=== PATIENT | female | born 1950 | race Caucasian/White ===

== ENCOUNTER 2016-08-28 11:24 | Outpatient (CLI) ==
--- NOTE | 2016-08-28 12:41 | DI ---
Examination: Two radiographic images of the right hip. Comparison: None available. Reason for study: Pain. FINDINGS: No acute fracture dislocation. The joint spaces well maintained. The femoral head artic ulates with the acetabula. Impression: No acute fracture or dislocation in the right hip.
--- NOTE | 2016-08-28 12:43 | DI ---
Examination: Three radiographic images of the lumbar spine. Comparison: None available. Reason for study: Pain. FINDINGS: No acute fracture. There is no apparent grade 1 retrolithesis of L5 on L4 seen on the la teral radiograph. This is not seen on the magnified lateral image. On the magnified lateral image, there is a grade 1 anterior listhesis of L5 on S1. There is maintenance of the lumbar lordotic cur ve. Operative changes are seen in the abdomen likely secondary to cholecystectomy. Impression: Likely grade 1 retrolithesis of L4 and L5 and grade 1 anterolisthesis of L5 on S1. If clinical conc mauro exists would recommend flexion/extension views. No acute fracture.
== END 2016-08-28 11:25 | disposition home or self-care (01) ==
LOC: RAD 11:24
PROVIDERS: ATTEND Internal Medicine
DX: M25.551 Pain in right hip (principal); M54.5 Low back pain

== ENCOUNTER 2018-07-13 07:48 | Outpatient (CLI) | payer OTHER ==
--- NOTE | 2018-07-13 13:18 | DEXA ---
EXAM: BONE DENSITOMETRY HISTORY: Post menopausal. FINDINGS: Exam of the lumbar spine demonstrated a total bone mineral density of 1.350 g/cm2. T score is 1.4. Age-matched Z score is 2.9. Exam of the hips revealed a total mean bone mineral density of 0.861 g/cm2. Mean hip T score: -1.2 Mean hip age-matched Z score: 0.0 FRAX WHO Fracture Risk Assessment. Ten year probability of fracture (%). Major Osteoporotic Fracture 11.4% Hip Fracture 1.9%. IMPRESSION: 1. Values presented indicate normal bone density of the spine. 2. Values presented indicate osteopenia of the hips.
--- NOTE | 2018-07-13 13:59 | DI ---
EXAM: Upper GI series HISTORY: Dysphagia COMPARISON: None FINDINGS: Upper GI series was performed using barium. Esophageal motility is normal. Esophageal [place] is normal. No filling defect is seen in the esophagus. Small hiatal hernia. Narrowing just above the hiatal hernia at the gastroesophageal junction region. A 13 mm dissolvable barium tablet was ad ministered and became lodged near the region of narrowing. No reflux identified on real time examinat ion. , excepting for the hiatal hernia, the stomach appears grossly normal without mass lesion or ulc er. The duodenum appears grossly normal without mass lesion or ulcer. IMPRESSION: Small hiatal hernia. Narrowing just above the hiatal hernia at the gastroesophageal junc tion region as described. Recommend correlation with endoscopy.
== END 2018-07-13 07:49 | disposition home or self-care (01) ==
LOC: RAD 07:48
PROVIDERS: ATTEND Internal Medicine
DX: R13.10 Dysphagia, unspecified (principal); Z78.0 Asymptomatic menopausal state

== ENCOUNTER 2018-08-16 08:54 | Day surgery (SDC) ==
[2018-08-16 09:55] VITALS: TEMP 97.9
[2018-08-16] MEDS ORDERED: SUBLIMAZE ONE (10:48)
[2018-08-16] MEDS ORDERED: DIPRIVAN 20 ML VIAL IVP ONE (10:48)
[2018-08-16 11:56] VITALS: BP 135/55
[2018-08-16 16:10] VITALS: BMI 27.6
--- NOTE | 2018-08-17 08:41 | OP ---
INDICATIONS FOR PROCEDURE: 67-year-old female presents for endoscopy. She has been having intermittent dysphagia to solid foods. The esophagram shows a narrowing in the distal esophagus. MEDICATIONS: SEE ANESTHESIA NOTES. PROCEDURE: ENDOSCOPY, ESOPHAGEAL BIOPSY, GASTRIC BIOPSY AND [place]IZ[place] DILATATION. REPORT: The risks, benefits, alternatives and limitations were discussed in detail with the patient. Informed consent was obtained. After adequate sedation was achieved, the video endoscope was introduced in the posterior pharynx and esophagus. I easily advanced this down to the second portion of the duodenum. I then slowly withdrew. The duodenal mucosa appeared unremarkable as did the duodenal bulb. The antrum and body were relatively unremarkable. In the proximal body there was a diminutive 4 to 5 mm semi sessile polyp that appeared benign. I biopsied it for histologic review. Retroflex view of the cardia and fundus revealed no abnormalities. The scope was anteflexed and withdrawn back through the esophagus. There was a small 1 to 2 cm sliding hiatal hernia. At the GE junction there was a circumferential stricture causing mild to moderate luminal narrowing. The esophagus itself appeared unremarkable. I biopsied the GE junction where the stricture was multiple times for histologic review. I then advanced the scope back down the gastric lumen. I placed a guidewire. I withdrew the scope. Over the guidewire I easily advanced a 54 [place] dilator. The patient tolerated the procedure well with stable vital signs and pulse oximetry throughout. IMPRESSION: 1. DISTAL ESOPHAGEAL STRICTURE DILATED TO 54 FILIPINO. 2. 1 TO 2 CM SLIDING HIATAL HERNIA. 3. SMALL BENIGN APPEARING GASTRIC POLYP BIOPSIED. RECOMMENDATIONS: 1. Strict reflux precautions. 2. I advised her to cut and chew her food well. 3. Continue her current medications. 4. She is having breakthrough reflux in the evenings. I advised avoiding eating and drinking late at night. When she does have some breakthrough reflux she can take an [id number] H2 arash on an as needed basis as directed. 5. Await pathology results. If everything is benign, no further intervention. If there is any evidence of Waite's then I suggest a repeat endoscopy exam in three years. 6. Will see her back in the office as needed. CC: DR. ALBANIA HOUSER
== END 2018-08-16 11:55 | disposition home or self-care (01) ==
LOC: SURG 08:54
PROVIDERS: ATTEND Internal Medicine Gastroenterology
DX: R13.10 Dysphagia, unspecified (principal); K44.9 Diaphragmatic hernia without obstruction or gangrene; K31.7 Polyp of stomach and duodenum; K22.2 Esophageal obstruction
CPT/HCPCS: 36415; 80053; 82271; 82272; 85025; 85610; 85730; 86850; 86900; 93005; 93010; 96361; 96374; 99285

== ENCOUNTER 2018-08-16 16:00 | Emergency (ER) ==
[2018-08-16 16:10] VITALS: BP 153/80; TEMP 97.9; BMI 27.6
--- NOTE | 2018-08-16 16:36 | ED.PDOC ---
General ED Provider: Dr. GUDELIA KASPER Chief Complaint: GI Bleed Stated Complaint: Vomiting Bright Blood. States she underwent UGI this AM at [facility] by Dr Borrego. Underwent Stretching of esophagus and polyp removal. No reported complication. States discharged to home in stable condition. After arriving home prepared her chicken noodle soup which she consumed 1/2 can. Tolerated well. Approximately 30 min before arrival she became nauseated she started feeling very nauseated and had a black stool, states that's 15 minutes later she vomited dark red blood. brought her to ER. states Time Seen by Physician: 16:05 Mode of Arrival: Walk-In Information Source: Patient Primary Care Provider: CAITLYN LOVELACE Nursing and Triage Documentation Reviewed and Agree: Yes Does patient meet sepsis criteria?: No If yes, has appropriate treatment been initiated?: No System Inflammatory Response Syndrome: Not Applicable Sepsis Protocol: For patient's 13 years and over: Temp is 96.8 and below OR 101 and greater Pulse >90 BPM Resp >20/minute Acutely Altered Mental Status Are patient's symptoms suggestive of a new infection, such as: -Pneumonia -Skin, Soft Tissue -Endocarditis -UTI -Bone, Joint Infection -Implantable Device -Acute Abdominal Infection -Wound Infection -Meningitis -Blood Stream Catheter Infection -Unknown GI Complaint Exam - Rectal Complaint/Exam Patient Complains of: Reports: Rectal bleeding Onset/Duration: 45 min before arrival Symptoms Are: Resolved Episodes Lasting: Minutes Initial Severity: Moderate Current Severity: None Location: Reports: Rectal Associated Signs and Symptoms: Reports: Black tarry stool (Liquid stool) Related History: Reports: Similar episode Rectal Exam: Present: Normal findings (secretions on glove suspicious for blood) Differential Diagnoses: Other (UGI Bleed, Hx of Black liquid stool(sl darker than emesis.) Review of Systems - Review Of Systems Constitutional: Reports: No symptoms Eyes: Reports: No symptoms Ears, Nose, Mouth, Throat: Reports: No symptoms Respiratory: Reports: No symptoms Cardiac: Reports: No symptoms GI: Reports: No symptoms, Vomiting (maria elena blood), Other (Recent Esophageal stretching and GI polyp removal) : Reports: No symptoms Musculoskeletal: Reports: No symptoms Skin: Reports: No symptoms Neurological: Reports: No symptoms Endocrine: Reports: No symptoms Hematologic/Lymphatic: Reports: No symptoms All Other Systems: Reviewed and Negative Past Medical History - Past Medical History Previously Healthy: Yes Endocrine: Reports: None, Hypothyroid Cardiovascular: Reports: None Respiratory: Reports: None Hematological: Reports: None Gastrointestinal: Reports: Other (polyp, esophageal stricture/EGD today with polyp removal and stretching ) Genitourinary: Reports: None Neuro/Psych: Reports: None Musculoskeletal: Reports: None Cancer: Reports: None Last Menstrual Period: n/a - Surgical History General Surgical History: Reports: None - Family History Family History: Reports: None - Social History Smoking Status: Never smoker Hx Substance Use: No Alcohol Screening: None Physical Exam - Physical Exam Appearance: Ill-appearing, No pain distress, Well-nourished Ill-appearing: Mild Pain Distress: None Eyes: LEONID, EOMI, Conjunctiva clear ENT: Ears normal, Nose normal, Oropharynx normal Respiratory: Airway patent, Breath sounds clear, Breath sounds equal, Respirations nonlabored Cardiovascular: RRR, Pulses normal, No rub, No murmur GI/: Soft, Nontender, No masses, Bowel sounds normal, No Organomegaly Musculoskeletal: Normal strength, ROM intact, No edema, No calf tenderness Skin: Warm, Dry, Normal color Neurological: Sensation intact, Motor intact, Reflexes intact, Cranial nerves intact, Alert, Oriented Psychiatric: Affect appropriate, Mood appropriate Re-Evaluation - Re-Evaluation Time of Re-Evaluation: 17:15 Status: Unchanged Vital Signs Stable: Yes Appearance: NAD Lungs: Clear Skin: Warm and Dry Neuro: Alert and Oriented X3 CV: RRR Physician Notification - Case Discussed Physician Notified: Dr Mendoza Time of Notification: 17:00 (Transfer to [facility] to [facility]) Critical Care Note - Critical Care Note Total Time (mins): 90 Course - Course Hematology/Chemistry: 08/16/18 16:40 08/16/18 16:40 Orders, Labs, Meds: Lab Review 08/16/18 08/16/18 08/16/18 16:30 16:40 16:40 WBC 13.50 H RBC 3.42 L Hgb 11.1 L Hct 32.2 L MCV 94.2 MCH 32.5 H MCHC 34.5 RDW Coeff of Poli 12.2 Plt Count 232 Immature Gran % (Auto) 0.4 Neut % (Auto) 84.1 Lymph % (Auto) 8.8 L [place] % (Auto) 5.3 Eos % (Auto) 1.1 Baso % (Auto) 0.3 Immature Gran # (Auto) 0.1 Neut # (Auto) 11.4 H Lymph # (Auto) 1.2 [place] # (Auto) 0.7 Eos # (Auto) 0.2 Baso # (Auto) 0.0 PT INR APTT Sodium 135.3 Potassium 3.99 Chloride 97.3 L Carbon Dioxide 31.0 H Anion Gap 10.99 BUN 21.0 H Creatinine 0.84 Estimated GFR (MDRD) 68.00 BUN/Creatinine Ratio 25.00 Glucose 124.4 H Calcium 8.84 Total Bilirubin 0.76 AST 25.3 ALT 19.4 Alkaline Phosphatase 70.1 Total Protein 6.87 Albumin 3.87 Globulin 3.00 Albumin/Globulin Ratio 1.29 Gastric Fluid pH Gastric Occult Blood Stl Occult Blood (IFOB) Stool Occult Blood #2 Stool Occult Blood #3 Blood Type O POSITIVE Antibody Screen Negative 08/16/18 08/16/18 08/16/18 16:40 16:45 16:50 WBC RBC Hgb Hct MCV MCH MCHC RDW Coeff of Poli Plt Count Immature Gran % (Auto) Neut % (Auto) Lymph % (Auto) [place] % (Auto) Eos % (Auto) Baso % (Auto) Immature Gran # (Auto) Neut # (Auto) Lymph # (Auto) [place] # (Auto) Eos # (Auto) Baso # (Auto) PT 9.5 INR 0.95 APTT 22.5 L Sodium Potassium Chloride Carbon Dioxide Anion Gap BUN Creatinine Estimated GFR (MDRD) BUN/Creatinine Ratio Glucose Calcium Total Bilirubin AST ALT Alkaline Phosphatase Total Protein Albumin Globulin Albumin/Globulin Ratio Gastric Fluid pH Gastric Occult Blood Positive Stl Occult Blood (IFOB) Positive Stool Occult Blood #2 No specimen received Stool Occult Blood #3 No specimen received Blood Type Antibody Screen Orders Category Date Time Status EKG-(ED ONLY) Stat CARDIO 08/16/18 17:54 Completed IV [ED IV/MEDIPORT/POWERPORT] .ONCE EMERGENCY 08/16/18 17:36 Active CBC W/ AUTO DIFF Stat LAB 08/16/18 16:40 Completed CMP [COMPREHENSIVE METABOLIC PANEL] Stat LAB 08/16/18 16:40 Completed GASTRIC OCCULT BLOOD AND PH Stat LAB 08/16/18 16:50 Completed OCCULT BLOOD, STOOL Stat LAB 08/16/18 16:45 Completed PT WITH INR Stat LAB 08/16/18 16:40 Completed PTT [PARTIAL THROMBOPLASTIN TIME] Stat LAB 08/16/18 16:40 Completed TYPE AND SCREEN Stat LAB 08/16/18 16:30 Completed 0.9 % Sodium Chloride [Saline Flush] MEDS 08/16/18 17:35 Discontinued 1 syr IVF PRN PRN Ondansetron HCl/Pf [Zofran 4 mg/2 ml] MEDS 08/16/18 16:47 Discontinued 4 mg IVP ONCE STA Sodium Chloride 0.9% [Sodium Chloride] 1,000 ml MEDS 08/16/18 16:55 Discontinued IV BOLUS Sodium Chloride 0.9% [Sodium Chloride] 1,000 ml MEDS 08/16/18 16:55 Discontinued IV ONCE Medications Discontinued Medications Generic Name Dose Route Start Last Admin Trade Name Freq PRN Reason Stop Dose Admin Sodium Chloride 1,000 mls @ 1,000 mls/hr 08/16/18 16:55 Sodium Chloride IV 08/16/18 17:54 BOLUS STA Sodium Chloride 1,000 mls @ 125 mls/hr 08/16/18 16:55 08/16/18 17:04 Sodium Chloride IV 08/17/18 00:54 125 mls/hr ONCE ONE Administration Ondansetron HCl 4 mg 08/16/18 16:47 08/16/18 17:02 Zofran 4 Mg/2 Ml IVP 08/16/18 16:48 4 mg ONCE STA Administration Sodium Chloride 1 syr 08/16/18 17:35 Saline Flush IVF PRN PRN To flush IV Vital Signs: Temp Pulse Resp BP Pulse Ox 08/16/18 16:05 97.9 F 70 20 153/80 H 99 Departure - Departure Time of Disposition: 17:30 Disposition: TSF SHORT-TRM HOSP Discharge Problem: UGI bleed, Gastrointestinal hemorrhage, Anemia Instructions: Gastrointestinal Bleeding (ED) Condition: Fair Pt referred to PMD for follow-up: Yes (See after discharge from hospital) IPMP verified?: No Allergies/Adverse Reactions: Allergies No Known Allergies Allergy (Verified 08/16/18 16:09) Home Medications: Ambulatory Orders Levothyroxine Sodium [Synthroid] 125 mcg PO DAILY 05/09/13 Simvastatin 40 mg PO DAILY 05/09/13 Transfer Form Completed: Yes Disposition Discussed With: Patient, Family Additional Information: 1640 Spoke with Advised of patient history of rectal bleeding Discussed case Request stool for guiac anticipate transfer Await lab results [address] Mendoza Advised of additional bloody emesis, lab results Advised to transfer to [facility] Hospitalist Stated he contacted hositalist service to make them aware of case Passed info on to Marilee RN in our dept Made patient aware 173 Advised by [facility] ICU room not available for 30-45 min and hospitalist wishes patient to be transferred until room available Transfer center Center called to make sure Dr Mendoza aware to delay in transfer and were advised Hospital dealing with 2 other GI bleeds(surgery and OR ) Emphasized our urgency in proceeding with transferring patient due to her status Will call us back when be ready 1750; [facility] called back and states room is ready. call report and send patient. Ambulance contacted for transfer
[2018-08-16] MEDS ORDERED: ZOFRAN 4 MG/2 ML IVP STA (16:47)
[2018-08-16] MEDS ORDERED: SODIUM CHLORIDE 1,000 ML IV ONE (16:55)
[2018-08-16] MEDS ORDERED: SODIUM CHLORIDE 1,000 ML IV STA (16:55)
== END 2018-08-16 18:13 | disposition short-term general hospital (02) ==
LOC: ED 16:00
DX: K91.840 Postprocedural hemorrhage of a digestive system organ or structure following a digestive system procedure (principal); D64.9 Anemia, unspecified; E03.9 Hypothyroidism, unspecified; Z79.899 Other long term (current) drug therapy; K92.0 Hematemesis
CPT/HCPCS: 36415; 80053; 82271; 82272; 85025; 85610; 85730; 86850; 86900; 93005; 93010; 96361; 96374; 99285

== ENCOUNTER 2018-10-13 16:17 | Emergency (ER) | payer OTHER ==
[2018-10-13 16:19] VITALS: BP 148/89; TEMP 98.8; BMI 27.7
--- NOTE | 2018-10-13 16:28 | ED.PDOC ---
General ED Provider: Dr. RAAD PATTON Chief Complaint: Fall Stated Complaint: chin laceration after a fall denied neck pain. Time Seen by Physician: 17:30 (fall NO L.O.C , NO HEADACHE ) Mode of Arrival: Walk-In Information Source: Patient Exam Limitations: No limitations Primary Care Provider: CAITLYN LOVELACE Referred to ED by: Other (NO TINGLING, NO MUBNESS NO L.O.C.) Nursing and Triage Documentation Reviewed and Agree: Yes Does patient meet sepsis criteria?: No If yes, has appropriate treatment been initiated?: No System Inflammatory Response Syndrome: Not Applicable Sepsis Protocol: For patient's 13 years and over: Temp is 96.8 and below OR 101 and greater Pulse >90 BPM Resp >20/minute Acutely Altered Mental Status Are patient's symptoms suggestive of a new infection, such as: -Pneumonia -Skin, Soft Tissue -Endocarditis -UTI -Bone, Joint Infection -Implantable Device -Acute Abdominal Infection -Wound Infection -Meningitis -Blood Stream Catheter Infection -Unknown Trauma/Injury Complaint Exam - Head Injury Complaint/Exam Location of Pain: Reports: Other (CHIN) Mechanism of Injury: Reports: Trauma (FALL NE HEADACHE NO NECK PAIN) Onset/Duration: 1 HR AGO Symptoms Are: Still present Initial Severity: Mild Current Severity: Mild Aggravating: Reports: None Alleviating: Reports: None Associated Signs and Symptoms: Denies: Confusion, Memory loss, Seizure, Epistaxis, Dental malocclusion, Neck pain, Nausea, Vomiting Loss of Consciousness: None SDH Risk Factors: Present: None Related Surgical History: Reports: None Immobilization Removed Post Exam: No Head Injury Findings: Present: Normal findings Glascow Coma Scale (see protocol): 15 Focal Weakness: Present: None Focal Sensory Loss: Present: None Gait: Normal Finger to Nose: Normal Nexus Low Risk Criteria: No post-midline CS tender, No evidence of intoxicat., No Altered LOC, No focal neuro deficit, No distracting injuries Differential Diagnoses: Other (LACERATION) Review of Systems - Review Of Systems Constitutional: Reports: No symptoms Eyes: Reports: No symptoms Ears, Nose, Mouth, Throat: Reports: No symptoms Respiratory: Reports: No symptoms Cardiac: Reports: No symptoms GI: Reports: No symptoms : Reports: No symptoms Musculoskeletal: Reports: No symptoms Skin: Reports: No symptoms Neurological: Reports: No symptoms (NO NUMBNES, NO WEAKNESS ) Endocrine: Reports: No symptoms Hematologic/Lymphatic: Reports: No symptoms All Other Systems: Reviewed and Negative Past Medical History - Past Medical History Previously Healthy: Yes Endocrine: Reports: None, Hypothyroid Cardiovascular: Reports: None Respiratory: Reports: None Hematological: Reports: None Gastrointestinal: Reports: Other (polyp, esophageal stricture/EGD today with polyp removal and stretching ) Genitourinary: Reports: None Neuro/Psych: Reports: None Musculoskeletal: Reports: None Cancer: Reports: None Last Menstrual Period: N/A - Surgical History General Surgical History: Reports: None - Family History Family History: Reports: None - Social History Smoking Status: Never smoker Hx Substance Use: No Alcohol Screening: None - Immunizations Tetanus Shot up to Date: No Physical Exam - Physical Exam Appearance: Well-appearing, No pain distress, Well-nourished Eyes: LEONID, EOMI, Conjunctiva clear ENT: Ears normal, Nose normal, Oropharynx normal Respiratory: Airway patent, Breath sounds clear, Breath sounds equal, Respirations nonlabored Cardiovascular: RRR, Pulses normal, No rub, No murmur GI/: Soft, Nontender, No masses, Bowel sounds normal, No Organomegaly Musculoskeletal: Normal strength, ROM intact, No edema, No calf tenderness Skin: Warm, Dry (3MM LAC CHIN ) Neurological: Sensation intact, Motor intact, Reflexes intact, Cranial nerves intact, Alert, Oriented Psychiatric: Affect appropriate, Mood appropriate Critical Care Note - Critical Care Note Total Time (mins): 0 Course - Course Vital Signs: Temp Pulse Resp BP Pulse Ox 10/13/18 16:17 98.8 F 68 18 148/89 H 98 Departure - Departure Time of Disposition: 16:28 (WOUND STERRI STRIPPED) Disposition: HOME SELF-CARE Discharge Problem: Laceration of chin Qualifiers: Encounter type: initial encounter Qualified Code(s): S01.81XA - Laceration without foreign body of other part of head, initial encounter Instructions: Laceration (ED) Condition: Good Pt referred to PMD for follow-up: Yes IPMP verified?: No Additional Instructions: Please call your Family Physician as soon as possible to schedule a follow-up appointment. Allergies/Adverse Reactions: Allergies No Known Allergies Allergy (Verified 10/13/18 16:19) Home Medications: Ambulatory Orders Levothyroxine Sodium [Synthroid] 125 mcg PO DAILY 05/09/13 Simvastatin 40 mg PO DAILY 05/09/13
[2018-10-13] MEDS ORDERED: TENIVAC IM ONE (16:37)
== END 2018-10-13 17:20 | disposition home or self-care (01) ==
LOC: ED 16:17
DX: S01.81XA Laceration without foreign body of other part of head, initial encounter (principal); W19.XXXA Unspecified fall, initial encounter
CPT/HCPCS: 90714; 99283

== ENCOUNTER 2023-03-29 12:12 | Observation (INO) ==
[2023-03-29] MEDS ORDERED: SUBLIMAZE IM ONE (12:13)
[2023-03-29] MEDS ORDERED: NORFLEX IM ONE (12:14)
[2023-03-29] MEDS ORDERED: ZOFRAN TAB PO ONE (12:33)
--- NOTE | 2023-03-29 13:11 | CT ---
EXAM: CT RIGHT HIP WITHOUT CONTRAST HISTORY: Acute pain COMPARISON: No recent imaging available for comparison. FINDINGS: Axial CT images of the right hip without contrast and multiplanar reformatted images. No discrete fracture line. No dislocation. Mild degenerative changes to the right hip. Small right hip joint effusion versus physiologic fluid. Mild degenerative changes to the right sacroiliac joint and pubic symphysis. The right hip soft tissues are grossly unremarkable by noncontrast CT examination. Large amount of stool in the rectum. IMPRESSION: No acute fracture. If symptoms persist, or if there is clinical concern for occult injury, recommend follow-up MRI exami nation. Small right hip joint effusion versus physiologic fluid. Degenerative changes. Please see above description and additional findings. All CT scans are performed using dose optimization techniques as appropriate to the performed exam an d include at least one of the following: Automated exposure control, adjustment of the mA and/or kV according t o size, and the use of iterative reconstruction technique.
--- NOTE | 2023-03-29 13:31 | ED.PDOC ---
General ED Provider: Dr. ISAAC KELLY MD Chief Complaint: Hip Pain/Injury Stated Complaint: This patient was feeling fine until trying to get in a car today, and developed sudden and severe pain in the right hip/lateral R thigh. She has never had this pain before, and had no mechanism of injury. She has not taken anything for it. movement of the lower leg, causes intense pain, and she gets relief with the knees flexed. She has no abdominal pain, and no pain running down the back of the leg, and no loss of sensation in the R leg. She can move and feel all the toes in the right foot. Time Seen by Provider: 03/29/23 12:13 Mode of Arrival: Wheelchair Information Source: Patient Exam Limitations: Clinical condition Primary Care Provider: CAITLYN LOVELACE MD Nursing and Triage Documentation Reviewed and Agree: Yes Musculoskeletal Complaint Exam Lower Extremity Complaint/Exam Location of Pain: Reports Right, Thigh and Hip Mechanism of Injury: Reports No known trauma Symptoms Are: Still present Onset of Pain: Reports Immediate Initial Severity: Severe Current Severity: Severe Location: Reports Discrete Character: Reports Sharp Alleviating: Reports Position Aggravating: Reports Movement Able to Bear Weight: No Associated Signs and Symptoms: Denies Swelling, Redness, Bruising, Fever, Weakness, Numbness or Tingling Related History: Denies Similar episode or Occupational injury DVT Risk Factors: Reports None Septic Arthritis Risk Factors: Reports None Related Surgical History: Reports None Lower Extremity Findings: Present Tenderness and Limited range of motion; Absent Swelling, Ecchymosis, Abnormal contour, Rotation, Ligamentous instability, Laceration, Erythema, Warmth, Blisters, Other joint pain or Foreign body NV Bundle Intact Distal to Injury: Yes Peter's Sign Present: No Differential Diagnoses: Strain and Sprain Review of Systems Review Of Systems Constitutional: Reports No symptoms Eyes: Reports No symptoms Ears, Nose, Mouth, Throat: Reports No symptoms Respiratory: Reports No symptoms Cardiac: Reports No symptoms GI: Reports No symptoms : Reports No symptoms Musculoskeletal: Reports Joint pain, Muscle pain and Muscle stiffness Skin: Reports No symptoms Neurological: Reports No symptoms Endocrine: Reports No symptoms Hematologic/Lymphatic: Reports No symptoms All Other Systems: Reviewed and Negative COUNTS INCLUDE 234 BEDS AT THE [facility] Medical History Atopic dermatitis L20.9 - Atopic dermatitis, unspecified (ICD-10) COVID-19 U07.1 - COVID-19 (ICD-10) Hx of herpes zoster virus Z86.19 - Personal history of other infectious and parasitic diseases (ICD- 10) Sciatica, right side M54.31 - Sciatica, right side (ICD-10) Family History FATHER CKD (chronic kidney disease) Mother Cardiac pacemaker Social History (Updated 03/29/23 @ 18:22 by ARLENE KIM RN) Smoking and tobacco status: Never smoker Passive smoking exposure: No Second hand smoke exposure: No Alcohol intake: current Alcohol intake frequency: holidays/special occasions only Substance use type: does not use Lorena/confucianist: BAHAI Special lorena needs: No Agree to transfusion: Yes Adopted: No Caregiver/support person: No Foster care: No Household members: spouse Housing: house Marital status: M Number of children: 1 service: No long term: No Current occupational status: employed Current occupation: [employer] History of recent travel: No Current gender identity: female Seatbelt use: always Helmet use: No Drives intoxicated or rides with intoxicated route sales driver: No Water heater temperature set < 120 degrees: Yes Working smoke detector in home: Yes Fire extinguisher in home: Yes Carbon monoxide detector in home: Yes Firearms in home: Yes Surgical History History of hysterectomy Z90.710 - Acquired absence of both cervix and uterus (ICD-10) History of removal of cyst Z98.890 - Other specified postprocedural states (ICD-10) History of thyroidectomy, total E89.0 - Postprocedural hypothyroidism (ICD-10) S/P cholecystectomy Z90.49 - Acquired absence of other specified parts of digestive tract (ICD- 10) Physical Exam Physical Exam Appearance: Reports Other (Pt is in obvious pain, crying out, not comfortable. No noticeable abnormailty seen in R hip of thigh.) Ill-appearing: Moderate Pain Distress: Severe Eyes: Reports LEONID and Conjunctiva clear ENT: Reports Ears normal, Nose normal and Oropharynx normal Neck: Nonsupple Respiratory: Reports Airway patent, Breath sounds clear and Breath sounds equal Cardiovascular: Reports RRR and No murmur GI/: Reports Soft, Nontender, No masses and Bowel sounds normal Musculoskeletal: Reports Normal strength and Other (ROM severely limited in the R lower ext - ANY movement of the R lower ext prduced severe exacerbation of the pain in the hip and lateral thigh on the right side, no deformity seen.) Skin: Reports Warm, Dry and Normal color Neurological: Reports Sensation intact, Motor intact, Reflexes intact, Cranial nerves intact, Alert and Oriented Psychiatric: Reports Affect appropriate Critical Care Note Critical Care Note Total Critical Care Time (mins): 0 Course Course 03/29/23 16:51 03/29/23 16:51 Orders, Labs, Meds: Lab Review 03/29/23 16:51 WBC 8.67 RBC 4.04 L Hgb 12.8 Hct 38.0 MCV 94.1 MCH 31.7 H MCHC 33.7 RDW Coeff of Poli 12.9 Plt Count 245 Immature Gran % (Auto) 0.3 Neut % (Auto) 80.8 H Lymph % (Auto) 11.5 [place] % (Auto) 5.3 Eos % (Auto) 1.8 Baso % (Auto) 0.3 Neut # (Auto) 7.0 H Lymph # (Auto) 1.0 [place] # (Auto) 0.5 Eos # (Auto) 0.2 Baso # (Auto) 0.0 Immature Gran # (Auto) 0.0 Sodium 132.7 L Potassium 3.62 Chloride 96.5 L Carbon Dioxide 27.6 Anion Gap 12.22 BUN 9.0 Creatinine 0.82 Estimated GFR (MDRD) 69.00 BUN/Creatinine Ratio 10.97 Glucose 99.3 Calcium 8.92 Total Bilirubin 0.73 AST 32.4 ALT 27.1 Alkaline Phosphatase 85.2 Total Protein 7.52 Albumin 4.10 Globulin 3.42 Albumin/Globulin Ratio 1.19 Orders Category Date Time Status ADMIT OBSERVATION [PLACE PATIENT OBSERVATION] .TO ADMISSION 03/29/23 16:28 Active MEDSURG (NON-MONITORED BED) ACTIVITY .Early Mobilization for VTE Prevention CARE 03/29/23 16:36 Active INTAKE & OUTPUT Q8HR CARE 03/29/23 16:36 Active VITAL SIGNS Q8HR CARE 03/29/23 16:36 Completed CARDIAC DIET DIETARY 03/29/23 Dinner Ordered CBC W/ AUTO DIFF DAILY@0600 LAB 03/30/23 06:00 Ordered CBC W/ AUTO DIFF DAILY@0600 LAB 03/31/23 06:00 Ordered CBC W/ AUTO DIFF Routine LAB 03/29/23 16:51 Completed CMP [COMPREHENSIVE METABOLIC PANEL] Routine LAB 03/29/23 16:51 Completed COMPREHENSIVE METABOLIC PANEL DAILY@0600 LAB 03/30/23 06:00 Ordered COMPREHENSIVE METABOLIC PANEL DAILY@0600 LAB 03/31/23 06:00 Ordered COVID [SARS COV-2 RNA RAPID MAUREEN] Stat LAB 03/29/23 Completed Acetaminophen [Tylenol] Meds 03/29/23 16:36 Active 650 mg PO Q4H PRN Dexamethasone Sod Phosphate [Decadron] Meds 03/29/23 15:19 Discontinued 10 mg IM ONCE ONE Fentanyl Citrate/Pf [Sublimaze] Meds 03/29/23 12:13 Discontinued 100 mcg IM ONCE ONE Hydrocodone Bit/Acetaminophen [[place] 5-325] Meds 03/29/23 16:36 Active 1 tab PO Q6H PRN Ketorolac Tromethamine [Toradol] Meds 03/29/23 15:12 Discontinued 60 mg IM ONCE ONE Ondansetron HCl [Zofran Tab] Meds 03/29/23 12:33 Discontinued 8 mg PO ONCE ONE Orphenadrine Citrate [Norflex] Meds 03/29/23 12:14 Discontinued 60 mg IM ONCE ONE Prednisone Meds 03/30/23 07:30 Active 10 mg PO DAILYWM2 Tizanidine HCl [Zanaflex] Meds 03/29/23 16:36 Active 4 mg PO Q6H PRN CT HIP RIGHT WITHOUT CONTRAST Stat RADS 03/29/23 12:14 Completed Medications Generic Name Dose Route Start Last Admin Trade Name Trisha PRN Reason Stop Dose Admin Acetaminophen 650 mg 03/29/23 16:36 Acetaminophen 325 Mg Tablet PO Q4H PRN Mild Pain Hydrocodone Bitart/Acetaminophen 1 tab 03/29/23 16:36 03/29/23 20:55 Hydrocodone Bit/Acetaminophen 5/325 Mg Tablet PO 1 tab Q6H PRN Administration Pain Bisoprolol Fumarate/HCTZ 1 tab 03/30/23 09:00 Bisoprolol Fumarate/Hctz 5/6.25 Mg Tab PO DAILY DILSHAD Levothyroxine Sodium 88 mcg 03/30/23 06:30 Levothyroxine Sodium 88 Mcg Tablet PO DAILY@0630 DILSHAD Omeprazole 20 mg 03/30/23 09:00 Omeprazole 20 Mg Capsule. PO DAILY DILSHAD Pantoprazole Sodium 40 mg 03/29/23 21:00 03/29/23 20:55 Pantoprazole Sodium 40 Mg Tablet. PO 40 mg BID DILSHAD Administration Prednisone 10 mg 03/30/23 07:30 Prednisone 10 Mg Tablet PO DAILYWM2 DILSHAD Simvastatin 40 mg 03/30/23 09:00 Simvastatin 40 Mg Tablet PO DAILY DILSHAD Tizanidine HCl 4 mg 03/29/23 16:36 Tizanidine Hcl 4 Mg Tablet PO Q6H PRN Spasms Discontinued Medications Generic Name Dose Route Start Last Admin Trade Name Freq PRN Reason Stop Dose Admin Dexamethasone Sodium Phosphate 10 mg 03/29/23 15:19 03/29/23 15:28 Dexamethasone Sod Phos 10 Mg/Ml Inj IM 03/29/23 15:20 10 mg ONCE ONE Administration Fentanyl Citrate 100 mcg 03/29/23 12:13 03/29/23 12:30 Fentanyl 50 Mcg/Ml Sdv IM 03/29/23 12:14 100 mcg ONCE ONE Administration Ketorolac Tromethamine 60 mg 03/29/23 15:12 03/29/23 15:20 Ketorolac Tromethamine 60 Mg/2 Ml Vial IM 03/29/23 15:13 Not Given ONCE ONE Ondansetron HCl 8 mg 03/29/23 12:33 03/29/23 12:36 Ondansetron Hcl 4 Mg Tablet PO 03/29/23 12:34 8 mg ONCE ONE Administration Orphenadrine Citrate 60 mg 03/29/23 12:14 03/29/23 12:29 Orphenadrine Citrate 60 Mg/2 Ml Vial IM 03/29/23 12:15 60 mg ONCE ONE Administration Vital Signs: Temp Pulse Resp BP Pulse Ox 03/29/23 12:13 98.0 F 68 20 173/91 H 100 Discharge Plan Discharge Patient Disposition: PLACED OBSERVATION Discharge Problem: Hip pain, Bursitis of hip, right Did you review [place] OVEN BUILDER for ALL controlled substances?: Yes ED Provider: ISAAC KELLY Condition: Fair Physician Progress Note: []CT of the R hip showed no fracture or dislocation, but a small amount of joint effusion in the R hip. This does not appear to be septic, but is abnormal. Will need orthopedist referral. I will place on NSAIDS for home use, with Norc 7.5 # 10 no refills, as this was SEVERELY painful to the patient. I spoke to Dr Carlos, who will be happy to see the patient in office for follow up, and he thought, since she was afebrile, the joint was not hot, that an injection of Dexamethasone 10 mg IM in that hip would likely be helpful. We will do that. The patient and her do not think that she can tolerate going home tonight, and want admitted for pain control. I have called Jefry Dunne, and she will admit her for 23 obs for pain control.
[2023-03-29] MEDS ORDERED: TORADOL IM ONE (15:12)
[2023-03-29] MEDS ORDERED: DECADRON IM ONE (15:19)
[2023-03-29] MEDS ORDERED: ZANAFLEX PO PRN (16:36)
[2023-03-29] MEDS ORDERED: TYLENOL PO PRN (16:36)
[2023-03-29 16:57] LABS: BASOPHILS % (AUTO) 0.3 % (0.0-3.0); EOSINOPHILS # (AUTO) 0.2 K/ul (0.0-0.7); EOSINOPHILS % (AUTO) 1.8 % (0.0-7.0); HEMOGLOBIN 12.8 g/dl (12.0-16.0); IMMATURE GRANULOCYTE % (AUTO) 0.3 % (0.0-5.0); LYMPHOCYTES % (AUTO) 11.5 (10.0-50.0); MEAN CORPUSCULAR HEMOGLOBIN 31.7 pg (27.0-31.0); MEAN CORPUSCULAR HGB CONC 33.7 (31.8-35.4); MEAN CORPUSCULAR VOLUME 94.1 fl (81.0-99.0); MONOCYTES # (AUTO) 0.5 K/uL (0.4-2.0); MONOCYTES % (AUTO) 5.3 (0-10); NEUTROPHILS % (AUTO) 80.8 % (42.2-75.2); PLATELET COUNT 245 10^3/uL (140-440); RDW COEFFICIENT OF VARIATION 12.9 % (11.6-14.8); RED BLOOD COUNT 4.04 10^6/ul (4.20-5.40); WHITE BLOOD COUNT 8.67 K/ul (4.6-10.2)
[2023-03-29 17:09] LABS: ALANINE AMINOTRANSFERASE 27.1 U/L (0-35); ALBUMIN 4.1 g/dL (3.5-5.0); ALKALINE PHOSPHATASE 85.2 U/L (53-141); ASPARTATE AMINO TRANSFERASE 32.4 U/L (14-36); BILIRUBIN,TOTAL 0.73 mg/dL (0.2-1.3); CALCIUM 8.92 mg/dL (8.4-10.2); CARBON DIOXIDE 27.6 mmol/L (22-30.0); CHLORIDE 96.5 mmol/L (98-107); CREATININE 0.82 mg/dL (0.60-1.30); GLUCOSE 99.3 mg/dL (74-106); POTASSIUM 3.62 mmol/L (3.5-5.1); SODIUM 132.7 mmol/L (134.5-145); TOTAL PROTEIN 7.52 g/dL (6.3-8.2)
[2023-03-29 17:22] LABS: SARS COV-2 RNA RAPID NAAT NEGATIVE (NEGATIVE)
[2023-03-29 18:33] VITALS: BMI 30.4
[2023-03-29] MEDS: NORCO 5-325 PO PRN (20:55)
[2023-03-29] MEDS: PROTONIX PO SCH (20:55)
[2023-03-30] MEDS: NORCO 5-325 PO PRN ×2 (04:02→11:12)
[2023-03-30 05:23] LABS: BASOPHILS % (AUTO) 0.1 % (0.0-3.0); HEMATOCRIT 36.4 % (37.0-47.0); HEMOGLOBIN 12.4 g/dl (12.0-16.0); IMMATURE GRANULOCYTE # (AUTO) 0.1 (0.0-1.0); IMMATURE GRANULOCYTE % (AUTO) 0.7 % (0.0-5.0); LYMPHOCYTES # (AUTO) 0.6 K/uL (0.60-3.4); MEAN CORPUSCULAR HEMOGLOBIN 31.7 pg (27.0-31.0); MEAN CORPUSCULAR HGB CONC 34.1 (31.8-35.4); MEAN CORPUSCULAR VOLUME 93.1 fl (81.0-99.0); MONOCYTES # (AUTO) 0.1 K/uL (0.4-2.0); MONOCYTES % (AUTO) 0.6 (0-10); NEUTROPHILS % (AUTO) 91.6 % (42.2-75.2); PLATELET COUNT 239 10^3/uL (140-440); RDW COEFFICIENT OF VARIATION 12.8 % (11.6-14.8); RED BLOOD COUNT 3.91 10^6/ul (4.20-5.40)
[2023-03-30 05:31] VITALS: BP 127/75; TEMP 99.1
[2023-03-30 05:33] LABS: ALANINE AMINOTRANSFERASE 26.6 U/L (0-35); ALBUMIN 3.95 g/dL (3.5-5.0); ALKALINE PHOSPHATASE 71.9 U/L (53-141); ASPARTATE AMINO TRANSFERASE 38.4 U/L (14-36); BILIRUBIN,TOTAL 0.82 mg/dL (0.2-1.3); BLOOD UREA NITROGEN 13.2 mg/dL (7-17); CALCIUM 8.53 mg/dL (8.4-10.2); CARBON DIOXIDE 23.7 mmol/L (22-30.0); CHLORIDE 97.9 mmol/L (98-107); CREATININE 0.86 mg/dL (0.60-1.30); GLUCOSE 138.2 mg/dL (74-106); POTASSIUM 3.71 mmol/L (3.5-5.1); SODIUM 130.9 mmol/L (134.5-145); TOTAL PROTEIN 7.28 g/dL (6.3-8.2)
[2023-03-30] MEDS ORDERED: SYNTHROID PO SCH (06:30)
[2023-03-30] MEDS ORDERED: PREDNISONE PO SCH (07:30)
[2023-03-30 08:09] VITALS: PULSE 80; RESP 16
[2023-03-30] MEDS: PRILOSEC PO SCH ×2 (08:14→08:21)
[2023-03-30] MEDS: PROTONIX PO SCH (08:14)
[2023-03-30] MEDS ORDERED: ZOCOR PO SCH (09:00)
[2023-03-30] MEDS ORDERED: PRILOSEC PO PRN (09:00)
[2023-03-30] MEDS ORDERED: ZIAC 5-6.25 MG PO SCH (09:00)
--- NOTE | 2023-03-30 09:54 | PCM.SS ---
Provider Provider: JODI LOPEZ, [facility] Date Admission Date: 03/29/23 Discharge Date Discharge Date: 03/30/23 Primary Care Physician Primary Care Physician: CAITLYN CLAIRE MD Chief Complaint Reason For Visit: INTRACTABLE RIGHT HIP PAIN, BURSITIS History of Present Illness History of Present Illness: Admitted 03/29/23 17:55, this 72 year old /WHITE/F presented to the ER yesterday with right hip pain that started yesterday morning after going to her doctor appointment. She denies any injury or trauma. She could not originally think of anything that she did yesterday to injure it. She did state that she was cleaning there shower Wednesday and she did a lot of repetitive motion of squatting and standing. She states that when she is sitting down there is no pain but when she gets up and walks the pain is a 10/10. She describes the pain as sharp and aching. She did try heat on it yesterday prior to going to the ER, she states it did not help. She denies there being pain anywhere else. She received IM Decadron 10mg, IM Sublimaze 100mcg, IM Toradol 600mg, and IM Norflex 60 mg in the ER. Patient was ambulated with my assistance to the bathroom and complained of minimal tolerable pain. She states that she can walk it just hurts her. Patient was instructed to take it easy and rest at home, apply ice to the effect area, take the prescribed Zanaflex, and follow-up with her PCP and Orthopedics. [facility] Medical History Hx of herpes zoster virus Z86.19 - Personal history of other infectious and parasitic diseases (ICD- 10) Sciatica, right side M54.31 - Sciatica, right side (ICD-10) Atopic dermatitis L20.9 - Atopic dermatitis, unspecified (ICD-10) COVID-19 U07.1 - COVID-19 (ICD-10) Surgical History History of removal of cyst Z98.890 - Other specified postprocedural states (ICD-10) History of thyroidectomy, total E89.0 - Postprocedural hypothyroidism (ICD-10) History of hysterectomy Z90.710 - Acquired absence of both cervix and uterus (ICD-10) S/P cholecystectomy Z90.49 - Acquired absence of other specified parts of digestive tract (ICD- 10) Family History FATHER CKD (chronic kidney disease) Mother Cardiac pacemaker Social History Smoking and tobacco status: Never smoker Passive smoking exposure: No Second hand smoke exposure: No Alcohol intake: current Alcohol intake frequency: holidays/special occasions only Substance use type: does not use Lorena/hoahaoism: HELGA Special lorena needs: No Agree to transfusion: Yes Adopted: No Caregiver/support person: No Foster care: No Household members: spouse Housing: house Marital status: M Number of children: 1 service: No alf: No Current occupational status: employed Current occupation: [employer] History of recent travel: No Current gender identity: female Seatbelt use: always Helmet use: No Drives intoxicated or rides with intoxicated ambulette driver: No Water heater temperature set < 120 degrees: Yes Working smoke detector in home: Yes Fire extinguisher in home: Yes Carbon monoxide detector in home: Yes Firearms in home: Yes Medications Mecications: Medications at Discharge (Home Meds & RX) bisoprolol 5 mg-hydrochlorothiazide 6.25 mg tablet 1 tab PO QDAY #90 tabs 09/07/22 simvastatin 40 mg tablet 40 mg PO DAILY #90 tabs 11/19/22 levothyroxine 88 mcg tablet 88 mcg PO QDAY #90 tabs 12/10/22 pantoprazole 40 mg tablet,delayed release See Rx Instructions .Route .COMPLEX #180 tabs 03/03/23 cholecalciferol (vitamin D3) PO DAILY 03/29/23 hydrocodone 7.5 mg-acetaminophen 325 mg tablet 1 tab PO Q4-6H PRN pain #10 tabs 03/29/23 hydrocodone 7.5 mg-acetaminophen 325 mg tablet 1 tab PO Q4-6H PRN pain #10 tabs 03/29/23 hydrocodone 7.5 mg-acetaminophen 325 mg tablet 1 tab PO Q4-6H PRN severe pain (scale score 7-10) #10 tabs 03/29/23 meloxicam 7.5 mg tablet 7.5 mg PO DAILY hip pain #10 tabs 03/29/23 omeprazole magnesium 20 mg tablet,delayed release (Prilosec OTC) 20 mg PO DAILY 03/29/23 vitamin B complex (B Complex-Vitamin B12 tablet) 1 tab PO DAILY 03/29/23 tizanidine 4 mg capsule (Zanaflex) 4 mg PO Q8H PRN spasms #30 caps 03/30/23 Allergies Allergies Allergy/AdvReac Type Severity Reaction Status Date / Time lovastatin AdvReac Unknown Unknown Verified 03/29/23 12:16 Review of Systems Constitutional: Reports No symptoms Head: Reports Normocephalic Eyes: Reports No symptoms Ears: Reports No symptoms Nose: Reports No symptoms Mouth: Reports No symptoms Throat: Reports No symptoms Cardiovascular: Reports No symptoms Respiratory: Reports No symptoms Gastrointestinal: Reports No symptoms Genitourinary: Reports No Symptoms Musculoskeletal: Reports Other (Right hip pain ) Endocrine: Reports No symptoms Hematology: Reports No symptoms Immunology: Reports No symptoms Neurological: Reports No symptoms Psychiatric: Reports No symptoms Physical Examination Appearance: Positive Well-appearing, Well-nourished, No Apparent Distress and Alert and Oriented x3 Head: Positive Normocephalic Eyes: Positive LEONID ENT: Positive Ears Normal, Nares Normal and Oropharynx Normal Neck: Positive Supple, Non-Tender, No Masses, No Lynphadenopathy and No Thyroidmegaly Heart: Positive RRR and No Murmurs Respiratory: Positive Airway patent, Breath Sounds Clear, Bilaterally and Breath Sounds Equal GI/: Positive Soft, Nontender, Bowel sounds normal, No Distention, No masses and No Organomegaly Extremities: Positive Other (No tenderness to palpation to the right hip, no noted bruising or signs of injury ) Neurological: Positive Normal Gait, Sensation Intact, Motor Intact, Alert and Oriented Psychiatric: Positive Normal Judgement Vital Signs (Last 4 Hours) Vital Signs Last 4 Hours: Vital Signs: Last 4 Hours 03/30/23 05:57 03/30/23 07:00 03/30/23 07:54 Pulse Rate [Apical] Respiratory Rate Oxygen Delivery Method Room Air Room Air Room Air 03/30/23 07:56 03/30/23 09:00 Pulse Rate [Apical] 80 Respiratory Rate 16 Oxygen Delivery Method Room Air Room Air Labs This Visit Labs This Visit: Labs This Visit 03/29/23 03/29/2303/30/23 16:51 Unknown 05:05 WBC 8.67 8.70 RBC 4.04 L 3.91 L Hgb 12.8 12.4 Hct 38.0 36.4 L MCV 94.1 93.1 MCH 31.7 H 31.7 H MCHC 33.7 34.1 RDW Coeff of Poli 12.9 12.8 Plt Count 245 239 Immature Gran % (Auto) 0.3 0.7 Neut % (Auto) 80.8 H 91.6 H Lymph % (Auto) 11.5 7.0 L [place] % (Auto) 5.3 0.6 Eos % (Auto) 1.8 0.0 Baso % (Auto) 0.3 0.1 Neut # (Auto) 7.0 H 8.0 H Lymph # (Auto) 1.0 0.6 [place] # (Auto) 0.5 0.1 L Eos # (Auto) 0.2 0.0 Baso # (Auto) 0.0 0.0 Immature Gran # (Auto) 0.0 0.1 Sodium 132.7 L 130.9 L Potassium 3.62 3.71 Chloride 96.5 L 97.9 L Carbon Dioxide 27.6 23.7 Anion Gap 12.22 13.01 BUN 9.0 13.2 Creatinine 0.82 0.86 Estimated GFR (MDRD) 69.00 65.00 BUN/Creatinine Ratio 10.97 15.34 Glucose 99.3 138.2 H Calcium 8.92 8.53 Total Bilirubin 0.73 0.82 AST 32.4 38.4 H ALT 27.1 26.6 Alkaline Phosphatase 85.2 71.9 Total Protein 7.52 7.28 Albumin 4.10 3.95 Globulin 3.42 3.33 Albumin/Globulin Ratio 1.19 1.18 SARS CoV-2 RNA Rapid MAUREEN Negative Imaging Imaging: EXAM: CT RIGHT HIP WITHOUT CONTRAST HISTORY: Acute pain COMPARISON: No recent imaging available for comparison. FINDINGS: Axial CT images of the right hip without contrast and multiplanar reformatted images. No discrete fracture line. No dislocation. Mild degenerative changes to the right hip. Small right hip joint effusion versus physiologic fluid. Mild degenerative changes to the right sacroiliac joint and pubic symphysis. The right hip soft tissues are grossly unremarkable by noncontrast CT examination. Large amount of stool in the rectum. IMPRESSION: No acute fracture. If symptoms persist, or if there is clinical concern for occult injury, recommend follow-up MRI examination. Small right hip joint effusion versus physiologic fluid. Degenerative changes. Review Review Statement: I have independently reviewed and interpreted the labs/EKGs/imaging that were ordered by the ER provider. I have reviewed all outside records that are available currently in our EMR including imaging/notes/labs from previous visits. Plan Reccomendations/Plan: 1. Intractable right hip pain, bursitis - Improving, [place] 7.5mg Q4-6H PRN, Zanaflex 4mg Q8H PRN, Rest and Ice the right hip, Followup with PCP and Orthopedics. 2. Hypertension - Chronic, stable, continue home medication 3. Hypothyroidism - Chronic, stable, continue home medication Additional Planning: Case discussed with ED Physician, Dr. Vargas DVT Prophylaxis: Ambulation Advanced Care Plannin minutes spent discussing advance care planning. Disposition: Admit to: Med/Surg Obs Full Code Discussed Plan of Care with Dr. Colin Claire If patient discharged with Left Ventricular Systolic Dysfunction: NA Discharged with a beta arash? [] If no, why not? [] Discharged with an jose/arb? [] If no, why not? [] Rest Activity as tolerated Apply ice to the area (on for 20 minutes, off for 20 minutes) Take meloxicam as prescribed for inflammation - do not take ibuprofen with this medication Take norco as prescribed as needed for pain/inflammation - do not take excess tylenol with this medication Take zanaflex as needed for muscle spasms Review With Patient Reviewed with Patient and Family: Patient and family have been counseled on condition and care plan and have no immediate questions. I have personally discussed and reviewed the patient's visit/current labs/imaging/decision making with Dr. Colin Claire, my supervising attending. Total number of minutes spent with patient 85 min. More than 50% of the time spent with this patient was devoted to counseling and coordination of care. Time of Admission:03/29/23 17:55 Time of Discharge: 03/30/23944 Discharge Plan Discharge Discharge Orders: Discharge Patient (ONCE); Ordered 03/30/23 Ordered By: SABRINA CLEMENS Activity Restrictions/Additional Instructions: Rest Activity as tolerated Apply ice to the area (on for 20 minutes, off for 20 minutes) Take meloxicam as prescribed for inflammation - do not take ibuprofen with this medication Take norco as prescribed as needed for pain/inflammation - do not take excess tylenol with this medication Take zanaflex as needed for muscle spasms YOU HAVE A HOSPITAL FOLLOW UP APPOINTMENT WITH DR. CLAIRE'S OFFICE ON March AT 2PM. SHOULD YOU HAVE ANY QUESTIONS OR NEED TO RESCHEDULE YOU CAN CONTACT THEIR OFFICE AT [phone]. Follow up with Dr. Carlos, [facility]. Contact for appointment. Instructions: Hip Bursitis (ED) Patient Disposition: HOME WITH FAMILY CARE Prescriptions: New hydrocodone-acetaminophen 7.5-325 mg tablet 1 tab PO Q4-6H MDD 3 PRN (Reason: severe pain (scale score 7-10)) Qty: 10 0RF meloxicam 7.5 mg tablet 7.5 mg PO DAILY MDD 1 Qty: 10 0RF hydrocodone-acetaminophen 7.5-325 mg tablet 1 tab PO Q4-6H MDD 3 PRN (Reason: pain) Qty: 10 0RF hydrocodone-acetaminophen 7.5-325 mg tablet 1 tab PO Q4-6H MDD 3 PRN (Reason: pain) Qty: 10 0RF tizanidine [Zanaflex] 4 mg capsule 4 mg PO Q8H PRN (Reason: spasms) Qty: 30 0RF Continued bisoprolol-hydrochlorothiazide 5-6.25 mg tablet 1 tab PO QDAY Qty: 90 1RF simvastatin 40 mg tablet 40 mg PO DAILY Qty: 90 1RF levothyroxine 88 mcg tablet 88 mcg PO QDAY Qty: 90 1RF pantoprazole 40 mg tablet,delayed release (DR/EC) See Rx Instructions .ROUTE .COMPLEX Qty: 180 1RF Dose Instruction: TAKE 1 TABLET BY MOUTH TWICE DAILY Rx Instructions: TAKE 1 TABLET BY MOUTH TWICE DAILY omeprazole magnesium [Prilosec OTC] 20 mg tablet,delayed release (DR/EC) 20 mg PO DAILY vitamin B complex [B Complex-Vitamin B12] Tablet 1 tab PO DAILY cholecalciferol (vitamin D3) PO DAILY Did you review [place] ATOMIC PHYSICS TEACHER for ALL controlled substances?: No Discussed opioids are addictive and Narcan is available by prescription or from pharmacy.: Yes Condition: Fair Stand Alone Forms: Work/School Release Inpatient
[2023-03-30] MEDS ORDERED: PROTONIX PO SCH (17:00)
[2023-03-31] MEDS ORDERED: PRILOSEC PO SCH (06:00)
== END 2023-03-30 11:16 | disposition home or self-care (01) ==
LOC: ED 12:12 → MEDSURG B 12:12
PROVIDERS: ADMIT Hospitalist; ATTEND Nurse Practitioner Family